=== PATIENT | male | born 1990 | race Caucasian/White ===

== ENCOUNTER 2021-04-24 14:26 | Inpatient (IN) | payer OTHER ==
[2021-04-24 15:54] VITALS: BMI 31.2
[2021-04-24] MEDS ORDERED: MAGNESIUM CITRATE 300 ML BOTTLE PO PRN (20:06)
[2021-04-24] MEDS ORDERED: MENTHOL/PHENOL 1 EACH UD MM PRN (20:06)
[2021-04-24] MEDS ORDERED: MAGNESIUM HYDROX 2400MG/30ML ORAL SUSPENSION 30 ML CUP PO PRN (20:06)
[2021-04-24] MEDS ORDERED: hydrOXYzine PAMOATE 25 MG CAPSULE (FP) PO PRN (20:06)
[2021-04-24] MEDS ORDERED: ACETAMINOPHEN 325 MG TABLET (FP) PO PRN ×2 (20:06)
[2021-04-24] MEDS ORDERED: MAG HYDROX/AL HYDROX/SIMETH 30 ML UNIT-DOSE CUP PO PRN (20:06)
[2021-04-24] MEDS ORDERED: METHOCARBAMOL 500 MG TABLET PO PRN (20:06)
[2021-04-24] MEDS ORDERED: ONDANSETRON *ODT* 4 MG TABLET SL PRN (20:06)
[2021-04-24] MEDS ORDERED: IBUPROFEN 400 MG TABLET (FP) PO PRN (20:06)
[2021-04-24] MEDS ORDERED: BISMUTH SUBSALICYLATE 524 MG/30 ML PO PRN (20:06)
[2021-04-24] MEDS: MELATONIN 5 MG TABLETS PO SCH (23:56)
[2021-04-24] MEDS: THIAMINE HCL 100 MG TABLET (FP) PO SCH (23:56)
[2021-04-25] MEDS ORDERED: diazePAM 5 MG TABLET PO PRN (09:34)
[2021-04-25] MEDS: PRENATAL VITAMINS W/ FOLIC ACID TABLET (FP) PO SCH (10:42)
[2021-04-25] MEDS: diazePAM 5 MG TABLET PO SCH ×3 (10:44→22:13)
[2021-04-25] MEDS: BACITRACIN 0.9 GM PACKET TP SCH ×2 (10:45→22:13)
[2021-04-25 14:37] LABS: HEMATOCRIT 39.9 % (35.4-49); HEMOGLOBIN 12.8 GM/dL (11.7-16.9); MCH 23.7 pg (25.7-33.7); MCHC 32.1 g/dl (32.0-35.9); MEAN CELL VOLUME 73.8 fl (80-96); MEAN PLT VOLUME 9.6 fl (7.5-11.1); PLATELET COUNT 242 K/MM3 (134-434); RDW 15.7 % (11.9-15.9); WHITE BLOOD COUNT 8.3 K/mm3 (4.0-10.0)
[2021-04-25 14:46] LABS: ALBUMIN 3.8 g/dl (3.4-5.0); BLOOD UREA NITROGEN 10.9 mg/dL (7-18); CALCIUM 9.5 mg/dL (8.5-10.1)
[2021-04-25 14:49] LABS: CREATININE 0.7 mg/dL (0.55-1.3)
[2021-04-25 14:51] LABS: BILIRUBIN,TOTAL 0.7 mg/dL (0.2-1); TOT PROT 7.7 g/dl (6.4-8.2)
[2021-04-25] MEDS: THIAMINE HCL 100 MG TABLET (FP) PO SCH (22:13)
[2021-04-25] MEDS: MELATONIN 5 MG TABLETS PO SCH (22:13)
[2021-04-26] MEDS: diazePAM 5 MG TABLET PO SCH ×4 (05:07→22:33)
[2021-04-26] MEDS: PRENATAL VITAMINS W/ FOLIC ACID TABLET (FP) PO SCH (10:40)
[2021-04-26] MEDS: BACITRACIN 0.9 GM PACKET TP SCH ×2 (10:40→22:33)
[2021-04-26] MEDS: MELATONIN 5 MG TABLETS PO SCH (22:33)
[2021-04-26] MEDS: THIAMINE HCL 100 MG TABLET (FP) PO SCH (22:33)
[2021-04-27] MEDS: diazePAM 5 MG TABLET PO SCH ×3 (05:30→22:12)
[2021-04-27] MEDS: BACITRACIN 0.9 GM PACKET TP SCH ×2 (10:05→22:12)
[2021-04-27] MEDS: PRENATAL VITAMINS W/ FOLIC ACID TABLET (FP) PO SCH (10:05)
[2021-04-27 10:07] LABS: SARS-CoV-2 NAA Not Detected (Not Detected)
[2021-04-27] MEDS: THIAMINE HCL 100 MG TABLET (FP) PO SCH (22:12)
[2021-04-27] MEDS: MELATONIN 5 MG TABLETS PO SCH (22:12)
[2021-04-28] MEDS: diazePAM 5 MG TABLET PO SCH ×2 (05:09→18:04)
[2021-04-28] MEDS: PRENATAL VITAMINS W/ FOLIC ACID TABLET (FP) PO SCH (10:12)
[2021-04-28] MEDS: BACITRACIN 0.9 GM PACKET TP SCH ×2 (10:14→22:29)
[2021-04-28] MEDS: amLODIPine BESYLATE 10 MG TABLET (FP) PO SCH (12:00)
[2021-04-28] MEDS: LISINOPRIL 5 MG TABLET PO SCH (12:00)
[2021-04-28] MEDS: MELATONIN 5 MG TABLETS PO SCH (22:26)
[2021-04-28] MEDS: THIAMINE HCL 100 MG TABLET (FP) PO SCH (22:26)
[2021-04-29] MEDS ORDERED: diazePAM 5 MG TABLET PO ONE (06:00)
[2021-04-29 07:04] VITALS: BP 144/83; PULSE 56; TEMP 96
[2021-04-29] MEDS: BACITRACIN 0.9 GM PACKET TP SCH (10:12)
[2021-04-29] MEDS: PRENATAL VITAMINS W/ FOLIC ACID TABLET (FP) PO SCH (10:13)
[2021-04-29] MEDS: LISINOPRIL 5 MG TABLET PO SCH (10:25)
[2021-04-29] MEDS: amLODIPine BESYLATE 10 MG TABLET (FP) PO SCH (10:25)
== END 2021-04-29 13:31 | disposition home or self-care (01) | DRG 775 ==
LOC: YASAS 14:26 → Y6N 21:07
PROVIDERS: ADMIT Allergy & Immunology; ATTEND Allergy & Immunology
PROC: HZ2ZZZZ Detoxification Services for Substance Abuse Treatment (ICD-10-PCS; principal; 2021-04-24)
DX: F10.230 Alcohol dependence with withdrawal, uncomplicated (principal); F10.220 Alcohol dependence with intoxication, uncomplicated; I10 Essential (primary) hypertension; G40.89 Other seizures; Z56.0 Unemployment, unspecified
CPT/HCPCS: 36415; 80053; 85027; 86780; C9803; U0003; U0005

== ENCOUNTER 2021-04-29 12:56 | Inpatient (IN) | payer OTHER ==
[2021-04-29] MEDS ORDERED: MAGNESIUM CITRATE 300 ML BOTTLE PO PRN (13:57)
[2021-04-29] MEDS ORDERED: MAG HYDROX/AL HYDROX/SIMETH 30 ML UNIT-DOSE CUP PO PRN (13:57)
[2021-04-29] MEDS ORDERED: LOPERAMIDE HCL 2 MG CAPSULE PO PRN (13:57)
[2021-04-29] MEDS ORDERED: MENTHOL/PHENOL 1 EACH UD MM PRN (13:57)
[2021-04-29] MEDS ORDERED: MAGNESIUM HYDROX 2400MG/30ML ORAL SUSPENSION 30 ML CUP PO PRN (13:57)
[2021-04-29] MEDS ORDERED: IBUPROFEN 400 MG TABLET (FP) PO PRN (13:57)
[2021-04-29] MEDS ORDERED: ACETAMINOPHEN 325 MG TABLET (FP) PO PRN (13:57)
[2021-04-29] MEDS ORDERED: TUBERCULIN PPD 5 TU/0.1ML VIAL ID ONE (14:24)
[2021-04-29] MEDS: MELATONIN 5 MG TABLETS PO SCH (21:31)
[2021-04-29] MEDS: THIAMINE HCL 100 MG TABLET (FP) PO SCH (21:31)
[2021-04-30] MEDS: PRENATAL VITAMINS W/ FOLIC ACID TABLET (FP) PO SCH (09:43)
[2021-04-30] MEDS: amLODIPine BESYLATE 10 MG TABLET (FP) PO SCH (12:04)
[2021-04-30] MEDS: LISINOPRIL 5 MG TABLET PO SCH (12:04)
[2021-04-30] MEDS: THIAMINE HCL 100 MG TABLET (FP) PO SCH (21:14)
[2021-04-30] MEDS: MELATONIN 5 MG TABLETS PO SCH (21:14)
[2021-05-01] MEDS: amLODIPine BESYLATE 10 MG TABLET (FP) PO SCH (10:05)
[2021-05-01] MEDS: PRENATAL VITAMINS W/ FOLIC ACID TABLET (FP) PO SCH (10:05)
[2021-05-01] MEDS: LISINOPRIL 5 MG TABLET PO SCH (10:05)
[2021-05-01] MEDS: MELATONIN 5 MG TABLETS PO SCH (21:31)
[2021-05-01] MEDS: THIAMINE HCL 100 MG TABLET (FP) PO SCH (21:31)
[2021-05-02] MEDS: LISINOPRIL 5 MG TABLET PO SCH (10:13)
[2021-05-02] MEDS: PRENATAL VITAMINS W/ FOLIC ACID TABLET (FP) PO SCH (10:13)
[2021-05-02] MEDS: amLODIPine BESYLATE 10 MG TABLET (FP) PO SCH (10:13)
[2021-05-02] MEDS ORDERED: MASKS NR ONE (18:02)
[2021-05-02] MEDS: MELATONIN 5 MG TABLETS PO SCH (21:15)
[2021-05-02] MEDS: THIAMINE HCL 100 MG TABLET (FP) PO SCH (21:15)
[2021-05-03] MEDS: amLODIPine BESYLATE 10 MG TABLET (FP) PO SCH (10:15)
[2021-05-03] MEDS: LISINOPRIL 5 MG TABLET PO SCH (10:15)
[2021-05-03] MEDS: PRENATAL VITAMINS W/ FOLIC ACID TABLET (FP) PO SCH (10:15)
[2021-05-03] MEDS: MELATONIN 5 MG TABLETS PO SCH (21:32)
[2021-05-03] MEDS: THIAMINE HCL 100 MG TABLET (FP) PO SCH (21:32)
[2021-05-04] MEDS: amLODIPine BESYLATE 10 MG TABLET (FP) PO SCH (10:50)
[2021-05-04] MEDS: LISINOPRIL 5 MG TABLET PO SCH (10:50)
[2021-05-04] MEDS: PRENATAL VITAMINS W/ FOLIC ACID TABLET (FP) PO SCH (10:50)
[2021-05-04] MEDS: MELATONIN 5 MG TABLETS PO SCH (21:44)
[2021-05-04] MEDS: THIAMINE HCL 100 MG TABLET (FP) PO SCH (21:44)
[2021-05-05 10:07] LABS: SARS-CoV-2 NAA Not Detected (Not Detected)
[2021-05-05 10:21] VITALS: BP 130/77; PULSE 101; TEMP 97.8
[2021-05-05] MEDS: PRENATAL VITAMINS W/ FOLIC ACID TABLET (FP) PO SCH (10:26)
[2021-05-05] MEDS: LISINOPRIL 5 MG TABLET PO SCH (10:26)
[2021-05-05] MEDS: amLODIPine BESYLATE 10 MG TABLET (FP) PO SCH (10:26)
[2021-05-05] MEDS ORDERED: PT OWN MED DRAWER 7, Y5N ONE (13:55)
== END 2021-05-05 14:15 | disposition home or self-care (01) | DRG 772 ==
LOC: YASAS 12:56 → Y3W 12:57
PROVIDERS: ADMIT Allergy & Immunology; ATTEND Allergy & Immunology
PROC: HZ42ZZZ Group Counseling for Substance Abuse Treatment, Cognitive-Behavioral (ICD-10-PCS; principal; 2021-04-29)
DX: F10.20 Alcohol dependence, uncomplicated (principal); U07.1 COVID-19
CPT/HCPCS: C9803; U0003; U0005